=== PATIENT | female | born 1950 | race African-American/Black ===

== ENCOUNTER 2023-03-20 15:23 | Emergency (ER) | payer OTHER, MEDICAID ==
[~2023-03-20] VITALS: Ht 165.1 cm; Wt 68.0 kg
[2023-03-20 15:37] VITALS: O2SAT 100
[2023-03-20] MEDS ORDERED: CEPH500T MT (19:23)
[2023-03-20] MEDS ORDERED: SULF1TAB48 MT (19:23)
[2023-03-20 19:30] VITALS: BP 123/76; PULSE 82; RESP 18; TEMP 98.2
[2023-03-20] MEDS ORDERED: CEPHALEXIN 250MG CAPSULE PO ONE (19:30)
[2023-03-20] MEDS ORDERED: SULFAMETHOXAZOLE/TRIMETHOPRIM 800/160MG TABLET PO ONE (19:30)
== END 2023-03-20 19:54 | disposition home or self-care (01) ==
LOC: ER 15:23
DX: L03.114 Cellulitis of left upper limb (principal); I10 Essential (primary) hypertension
CPT/HCPCS: 93970; 99284

== ENCOUNTER 2023-12-08 14:01 | Emergency (ER) | payer MEDICARE, MEDICAID ==
[~2023-12-08] VITALS: Ht 167.6 cm; Wt 72.0 kg
[~2023-12-08 14:01] MED LIST: CEPH500T MT; SULF1TAB48 MT
[2023-12-08 14:06] VITALS: O2SAT 99
[2023-12-08] MEDS: ACETAMINOPHEN 325MG TABLET PO ONE (16:38)
[2023-12-08 18:03] VITALS: BP 138/78; PULSE 75; RESP 16; TEMP 98.8
== END 2023-12-08 19:06 | disposition home or self-care (01) ==
LOC: ER 14:01
DX: M25.561 Pain in right knee (principal); I10 Essential (primary) hypertension
CPT/HCPCS: 73562; 99283